=== PATIENT | male | born 1980 ===

== ENCOUNTER 2022-12-22 19:23 | Emergency (ER) | payer SELFPAY ==
[2022-12-22 19:45] VITALS: BP 126/87; PULSE 102; RESP 18; TEMP 36.3; O2SAT 98
--- NOTE | 2022-12-23 01:32 | PC.NURSE ---
Patient's name called twice in ED waiting room by BETHEL Rueda. No answer.
== END 2022-12-23 01:32 | disposition left against medical advice (07) ==
LOC: ANHED 12-23 01:40
DX: F31.9 Bipolar disorder, unspecified (principal)
CPT/HCPCS: 99199